=== PATIENT | male | born 1955 | race Caucasian/White ===

== ENCOUNTER 2020-08-14 13:49 | Outpatient (CLI) | payer BC ==
--- NOTE | 2020-08-14 15:09 | CT ---
CT chest noncontrast low-dose screening HISTORY: Tobacco abuse. COMPARISON: 11/07/2012. FINDINGS: Mild chronic elevation right hemidiaphragm with parenchymal scarring at the right lung base . A 0.4 cm subpleural nodule is predominantly groundglass density at the lateral aspect of the left upper lobe, stable compared to the prior study. Additional smaller nodules, none larger than 0.3 cm, are present at the lateral aspect of the right lung apex and the posterolateral aspect of the left lower lobe. No evidence of pleural fluid or pneumothorax. Lack of contrast limits evaluation the soft tissues. No evidence of mediastinal adenopathy. An exophy tic cyst projecting laterally from the superior pole of the right kidney measures up to 2.7 cm oblique diameter on the axial images. On the inferior most images, tiny pockets of gas are present wi thin the partially visualized dependent portion of the gallbladder. IMPRESSION : Lung RADS category 2. Benign findings. Suggest routine screening. Cholelithiasis.
== END 2020-08-14 13:50 | disposition home or self-care (01) ==
LOC: BICCT 13:49
PROVIDERS: ATTEND Family Medicine
DX: Z12.2 Encounter for screening for malignant neoplasm of respiratory organs (principal)
CPT/HCPCS: G0297

== ENCOUNTER 2022-05-12 12:27 | Outpatient (CLI) | payer OTHER | END 2022-05-12 12:28 | disposition home or self-care (01) | LOC: BICCT 12:27 | PROVIDERS: ATTEND Student in an Organized Health Care Education/Training Program | DX: Z13.6 Encounter for screening for cardiovascular disorders (principal); Z12.2 Encounter for screening for malignant neoplasm of respiratory organs; F17.211 Nicotine dependence, cigarettes, in remission | CPT/HCPCS: 71271; 76770; 76775 ==

== ENCOUNTER 2023-04-20 12:52 | Outpatient (CLI) | payer OTHER | END 2023-04-20 12:53 | disposition home or self-care (01) | LOC: BICCT 12:52 | PROVIDERS: ATTEND Family Medicine | DX: Z12.2 Encounter for screening for malignant neoplasm of respiratory organs (principal); I10 Essential (primary) hypertension; E78.00 Pure hypercholesterolemia, unspecified; J44.9 Chronic obstructive pulmonary disease, unspecified; N28.1 Cyst of kidney, acquired; K80.80 Other cholelithiasis without obstruction; F17.210 Nicotine dependence, cigarettes, uncomplicated | CPT/HCPCS: 71271 ==

== ENCOUNTER 2025-04-11 13:32 | Emergency (ER) | payer OTHER ==
[2025-04-11] MEDS ORDERED: Lidocaine 1% (PF) 30 ML VIAL ONE (13:42)
== END 2025-04-11 14:58 | disposition home or self-care (01) ==
LOC: ERS 13:32
DX: S61.211A Laceration without foreign body of left index finger without damage to nail, initial encounter (principal); I10 Essential (primary) hypertension; W31.2XXA Contact with powered woodworking and forming machines, initial encounter
CPT/HCPCS: 96372; 99283